=== PATIENT | female | born 1960 | race Caucasian/White ===

== ENCOUNTER → 2023-09-04 11:16 | Outpatient (REF) | payer MEDICARE, SELFPAY | LOC: HWWDC 11:16 | PROVIDERS: ATTENDING PHYSICIAN Nurse Practitioner Family | DX: Z12.31 Encounter for screening mammogram for malignant neoplasm of breast (principal) | CPT/HCPCS: 77063; 77067 ==

== ENCOUNTER → 2023-12-02 10:28 | Outpatient (REF) | payer MEDICARE, SELFPAY | LOC: HWRAD 10:28 | PROVIDERS: ATTENDING PHYSICIAN Physician Assistant Surgical; FAMILY PHYSICIAN Nurse Practitioner Family | DX: M54.50 Low back pain, unspecified (principal) | CPT/HCPCS: 72131 ==

== ENCOUNTER → 2024-09-27 12:52 | Outpatient (REF) | payer MEDICARE, SELFPAY | LOC: HWRAD 12:52 | PROVIDERS: ATTENDING PHYSICIAN Psychiatry & Neurology Neurology; FAMILY PHYSICIAN Nurse Practitioner Family | DX: M54.12 Radiculopathy, cervical region (principal) | CPT/HCPCS: 72125 ==

== ENCOUNTER → 2024-10-11 11:19 | Outpatient (REF) | payer MEDICARE, SELFPAY | LOC: HWWDC 11:19 | PROVIDERS: ATTENDING PHYSICIAN Nurse Practitioner Family | DX: Z12.31 Encounter for screening mammogram for malignant neoplasm of breast (principal) | CPT/HCPCS: 77063; 77067 ==

== ENCOUNTER → 2024-11-08 13:39 | Outpatient (REF) | payer MEDICARE, SELFPAY | LOC: HWRAD 13:39 | PROVIDERS: ATTENDING PHYSICIAN Internal Medicine; FAMILY PHYSICIAN Nurse Practitioner Family | DX: R19.4 Change in bowel habit (principal); R10.9 Unspecified abdominal pain | CPT/HCPCS: 74019 ==

== ENCOUNTER 2024-11-21 06:30 | Day surgery (SDC) | payer MEDICARE, SELFPAY | END 2024-11-21 12:32 | disposition home or self-care (01) | LOC: GI 06:30 | PROVIDERS: ATTENDING PHYSICIAN Internal Medicine | DX: Z12.11 Encounter for screening for malignant neoplasm of colon (principal); K57.30 Diverticulosis of large intestine without perforation or abscess without bleeding; K62.89 Other specified diseases of anus and rectum; R12 Heartburn; K44.9 Diaphragmatic hernia without obstruction or gangrene; K29.70 Gastritis, unspecified, without bleeding; D12.3 Benign neoplasm of transverse colon | CPT/HCPCS: 45385; 45381; 45380; 43239; 88305; 88342 ==

== ENCOUNTER → 2024-12-16 11:24 | Outpatient (REF) | payer MEDICARE, SELFPAY | LOC: RCS 11:24 | PROVIDERS: ATTENDING PHYSICIAN Internal Medicine Cardiovascular Disease; FAMILY PHYSICIAN Nurse Practitioner Family | DX: R60.0 Localized edema (principal); R63.5 Abnormal weight gain | CPT/HCPCS: 93306 ==

== ENCOUNTER → 2025-03-24 15:18 | Outpatient (REF) | payer MEDICARE, SELFPAY | LOC: RAD 15:18 | PROVIDERS: ATTENDING PHYSICIAN Nurse Practitioner; FAMILY PHYSICIAN Nurse Practitioner Family | DX: M54.14 Radiculopathy, thoracic region (principal); M54.16 Radiculopathy, lumbar region | CPT/HCPCS: 72130; 72133; Q9967 ==

== ENCOUNTER → 2025-04-18 09:56 | Outpatient (REF) | payer MEDICARE, SELFPAY | LOC: HWRAD 09:56 | PROVIDERS: ATTENDING PHYSICIAN Nurse Practitioner Family | DX: K83.8 Other specified diseases of biliary tract (principal) | CPT/HCPCS: 76700 ==

== ENCOUNTER 2025-05-12 06:10 | Day surgery (SDC) | payer MEDICARE, SELFPAY ==
[2025-05-12 13:51] VITALS: BP 113/76
[2025-05-12 15:31] VITALS: BP 104/70
[2025-05-12 15:45] VITALS: BP 96/66
[2025-05-12 16:00] VITALS: BP 90/53
== END 2025-05-12 16:22 | disposition home or self-care (01) ==
LOC: GI 06:10
PROVIDERS: ATTENDING PHYSICIAN Internal Medicine Gastroenterology
DX: R93.5 Abnormal findings on diagnostic imaging of other abdominal regions, including retroperitoneum (principal); K83.8 Other specified diseases of biliary tract; R93.3 Abnormal findings on diagnostic imaging of other parts of digestive tract; F11.90 Opioid use, unspecified, uncomplicated; K86.89 Other specified diseases of pancreas
CPT/HCPCS: 43237

== ENCOUNTER → 2025-05-18 15:15 | Outpatient (REF) | payer MEDICARE, SELFPAY | LOC: RAD 15:15 | PROVIDERS: ATTENDING PHYSICIAN Internal Medicine Cardiovascular Disease; FAMILY PHYSICIAN Nurse Practitioner Family | DX: R60.0 Localized edema (principal) | CPT/HCPCS: 93970 ==

== ENCOUNTER → 2025-05-19 13:09 | Outpatient (REF) | payer MEDICARE, SELFPAY | LOC: HWRCS 13:09 | PROVIDERS: ATTENDING PHYSICIAN Internal Medicine Cardiovascular Disease; FAMILY PHYSICIAN Nurse Practitioner Family | DX: R60.0 Localized edema (principal) | CPT/HCPCS: 93306 ==